=== PATIENT | female | born 1980 | race Caucasian/White ===

== ENCOUNTER 2020-01-13 15:28 | Emergency (ER) | payer BC, OTHER ==
[2020-01-13] MEDS ORDERED: Acetaminophen 500 MG TAB ONE (16:04)
[2020-01-13] MEDS ORDERED: Ketorolac Tromethamine 30 MG/ML VIAL ONE (16:04)
--- NOTE | 2020-01-13 16:33 | RAD ---
XR Chest 1 View Portable HISTORY: Shortness of breath, chest pain, tested positive for COVID 19 COMPARISON: 03/03/2017, 10/14/2019 FINDINGS: The heart size is normal. The lungs are well expanded without focal areas of consolidation, pneumothorax or pleural effusions. IMPRESSION: No radiographic evidence of acute cardiopulmonary process.
[2020-01-13 16:41] LABS: #Lymphocytes 0.7 thou/uL (1.20-3.40); #Monocytes 0.3 thou/uL (0.11-0.59); %Basophils 1.6 % (0.0-1.0); %Eosinophils 1.1 % (0.0-10.0); %Lymphocytes 36.7 % (21.0-51.0); %Monocytes 13.8 % (0.0-10.0); %Neutrophils 46.9 % (42.0-75.0); Hemoglobin 14.3 g/dL (12.0-16.0); Mean Corpuscular HGB CONC 34.7 g/dL (32.0-36.0); Mean Corpuscular Hemoglobin 33.4 pg (27.0-31.0); Mean Corpuscular Volume 96.2 fL (78.0-98.0); Mean Platelet Volume 8.4 fL (7.4-10.4); Platelet Count 160 thou/uL (130-400); RBC Distribution Width 11.4 % (11.5-14.5); Red Blood Cell (RBC) Count 4.28 mill/uL (4.20-5.40)
[2020-01-13 16:50] LABS: BHCG - Serum Negative (NEGATIVE); Pregs Control Background? CLEAR/WHITE (CLR/WHITE); Pregs Control Bar Appear? YES (CONTROL BAR)
[2020-01-13 17:00] LABS: ALT (SGPT) 51 U/L (8-55); AST (SGOT) 41 U/L (5-34); Albumin 3.7 g/dL (3.5-5.0); Alkaline Phosphatase 64 U/L (40-110); Anion Gap 12 mmol/L (10-20); BUN (Urea Nitrogen) 10 mg/dL (7.0-18.7); Bilirubin, Total 0.2 mg/dL (0.2-1.2); Calc. Creatinine Clearance 0 mL/min (70-130); Calcium 8.2 mg/dL (7.8-10.44); Carbon Dioxide 20 mmol/L (22-29); Chloride 109 mmol/L (98-107); Estimated GFR-MDRD 86; Globulin 2.6 g/dL (2.4-3.5); Glucose 81 mg/dL (70-105); Potassium 3.8 mmol/L (3.5-5.1); Protein, Total 6.3 g/dL (6.0-8.3); Sodium 137 mmol/L (136-145)
[2020-01-13 18:39] LABS: Squamous Epithelial 0-3 HPF (0-3); WBC/HPF 0-3 HPF (0-3)
[2020-01-13 18:48] LABS: Bacteria/HPF 1+ HPF (None Seen); Bilirubin Negative (Negative); Blood, Urine Negative (Negative); Clarity Clear (Clear); Glucose, Urine (Dipstick) Normal (Negative); Leukocyte Negative Leu/uL (Negative); Nitrite Negative (Negative); Protein, Urine (Dipstick) Negative (Neg-Trace); Urobilinogen Normal mg/dL (Less than 2)
--- NOTE | 2020-01-16 17:05 | EKG ---
Test Reason : Blood Pressure : / mmHG Vent. Rate : 069 BPM Atrial Rate : 069 BPM P-R Int : 140 ms QRS Dur : 094 ms QT Int : 396 ms P-R-T Axes : 051 070 058 degrees QTc Int : 424 ms Normal sinus rhythm Normal ECG Confirmed by ENA GARCÍA ([id number]), editor dictionary KULDEEP ESTES ([id number]) on 01/16/2020 5:05:43 PM Referred By: Confirmed By:ENA Esquivel
== END 2020-01-13 18:54 | disposition home or self-care (01) ==
LOC: ERS 15:28
DX: U07.1 COVID-19 (principal); F41.9 Anxiety disorder, unspecified; Z79.899 Other long term (current) drug therapy
CPT/HCPCS: 71045; 80053; 81003; 84484; 84703; 85025; 93005; 96360; 96372; J1885

== ENCOUNTER 2020-10-12 23:56 | Emergency (ER) | payer BC | END 2020-10-13 02:31 | disposition home or self-care (01) | LOC: ERS 23:56 | DX: M79.672 Pain in left foot (principal) ==

== ENCOUNTER 2023-02-19 13:02 | Outpatient (CLI) | payer BC | END 2023-02-19 13:03 | disposition home or self-care (01) | LOC: DTY/OP 13:02 | PROVIDERS: ATTEND Surgery | DX: E66.01 Morbid (severe) obesity due to excess calories (principal) | CPT/HCPCS: 97802 ==

== ENCOUNTER 2023-07-02 11:54 | Outpatient (CLI) | payer BC ==
[2023-07-02 16:33] LABS: #Eosinphils 0.1 10x3/uL (0.0-0.5); #Monocytes 0.5 10x3/uL (0.0-1.1); #Neutrophils 3.9 10x3/uL (1.5-8.4); %Basophils 0.7 % (0.0-2.0); %Eosinophils 2.3 % (0.0-6.0); %Lymphocytes 24.4 % (18.0-47.0); %Monocytes 8.1 % (0.0-10.0); %Neutrophils 63.7 % (40.0-75.0); Hematocrit 42.2 % (34.9-44.5); Hemoglobin 14.8 g/dL (12.0-15.5); Mean Corpuscular HGB CONC 35.1 g/dL (32.0-36.0); Mean Corpuscular Hemoglobin 33.1 pg (27.0-33.0); Mean Corpuscular Volume 94.4 fl (81.6-98.3); Mean Platelet Volume 10.8 fl (7.4-10.4); Platelet Count 268 10x3/uL (150-450); Red Blood Cell (RBC) Count 4.47 10x6/uL (3.90-5.03); White Blood Cell (WBC) Count 6.1 10x3/uL (3.5-10.5)
[2023-07-02 16:59] LABS: ALT (SGPT) 92 U/L (8-55); AST (SGOT) 50 U/L (5-34); Albumin 4.2 g/dL (3.5-5.0); Alkaline Phosphatase 78 U/L (40-110); Anion Gap 15 mmol/L (10-20); BUN (Urea Nitrogen) 13 mg/dL (7.0-18.7); Bilirubin, Total 0.5 mg/dL (0.2-1.2); Calc. Creatinine Clearance 0 mL/min (70-130); Calcium 8.8 mg/dL (7.8-10.44); Carbon Dioxide 22 mmol/L (22-29); Chloride 105 mmol/L (98-107); Estimated GFR 85; Globulin 2.5 g/dL (2.4-3.5); Glucose 119 mg/dL (70-105); Protein, Total 6.7 g/dL (6.0-8.3); Sodium 138 mmol/L (136-145)
[2023-07-02 20:24] LABS: Hemoglobin A1c 5.4 % (4.0-6.0)
== END 2023-07-02 11:55 | disposition home or self-care (01) ==
LOC: LABBT 11:54
PROVIDERS: ATTEND Surgery
DX: Z01.818 Encounter for other preprocedural examination (principal); E66.01 Morbid (severe) obesity due to excess calories
CPT/HCPCS: 71046; 80053; 83036; 85025; 93005; 93010

== ENCOUNTER 2023-07-02 12:00 | Inpatient (IN) | payer BC ==
[2023-07-17] MEDS ORDERED: PROPOFOL 20 ML ONE (06:24)
[2023-07-17] MEDS ORDERED: Heparin 5,000 UNITS/ML VIAL ONE (06:24)
[2023-07-17] MEDS ORDERED: Rocuronium Bromide 10 MG/ML (10ML VIAL) ONE (06:25)
[2023-07-17] MEDS ORDERED: fentaNYL 50 mcg/mL 1 mL Vial ONE (06:25)
[2023-07-17] MEDS ORDERED: Sodium Chloride 0.9% 100 ML ONE (06:25)
[2023-07-17] MEDS ORDERED: CEFAZOLIN 2 GM VIAL ONE (06:25)
[2023-07-17] MEDS ORDERED: Ondansetron PF 4 MG/2 ML Vial ONE (06:26)
[2023-07-17] MEDS ORDERED: Dexamethasone 4 mg/ml Vial ONE (06:26)
[2023-07-17] MEDS ORDERED: Ketorolac Tromethamine 30 MG/ML VIAL ONE (06:26)
[2023-07-17] MEDS ORDERED: Bupivacaine 0.25% HCL 30 ML VIAL ONE (06:27)
[2023-07-17] MEDS ORDERED: EPINEPHrine 1 MG/ML VIAL ONE (06:27)
[2023-07-17] MEDS ORDERED: Midazolam HCl 2 mg/2 ml Vial ONE (07:08)
[2023-07-17] MEDS ORDERED: Scopolamine 1 mg/72 hour Patch ONE (07:10)
[2023-07-17] MEDS ORDERED: NEOSTIGMINE 3 MG/3 ML SYR 3 MG/3 ML SYRINGE ONE ×2 (07:58→09:43)
[2023-07-17] MEDS ORDERED: Glycopyrrolate 0.2 MG/ML 5 ML SYRINGE ONE ×2 (07:58→09:43)
[2023-07-17] MEDS ORDERED: Dexamethasone 20 MG/5 ML VIAL ONE (07:58)
[2023-07-17] MEDS ORDERED: HYDROmorphone 2 MG/ML VIAL ONE (09:14)
[2023-07-17] MEDS ORDERED: Ipratropium/Albuterol 3 ML NEB NEB PRN (09:57)
[2023-07-17] MEDS ORDERED: Dextrose 50% Abboject 50 ML SYRINGE SLOW IVP PRN (09:57)
[2023-07-17] MEDS ORDERED: Glucagon 1 MG/ML KIT IM PRN (09:57)
[2023-07-17] MEDS ORDERED: diphenhydrAMINE 50 MG/ML VIAL IVP PRN (09:57)
[2023-07-17] MEDS ORDERED: hydrALAZINE 20 MG/ML VIAL SLOW IVP PRN (09:57)
[2023-07-17] MEDS ORDERED: Promethazine HCl 25 MG/ML VIAL IM PRN ×2 (09:57→11:30)
[2023-07-17] MEDS ORDERED: Dextrose 5% in Water 1,000 ML IV PRN (09:57)
[2023-07-17] MEDS ORDERED: Hydrocodone-Acetamin 15 ML UDCUP PO PRN ×2 (09:57→11:22)
[2023-07-17] MEDS ORDERED: Ondansetron PF 4 MG/2 ML Vial IVP PRN ×2 (09:57→11:30)
[2023-07-17] MEDS ORDERED: fentaNYL PF 100 MCG/2 ML SYRINGE ONE ×2 (10:34→11:14)
[2023-07-17] MEDS ORDERED: diphenhydrAMINE 50 MG/ML VIAL IM/IV PRN (11:30)
[2023-07-17] MEDS ORDERED: Fentanyl CADD 100 ML IVPB SCH (11:30)
[2023-07-17] MEDS ORDERED: diphenhydrAMINE 25 MG CAP PO PRN (11:30)
[2023-07-17] MEDS ORDERED: Naloxone HCl 0.4 mg/ml Vial IV PRN (11:30)
[2023-07-17] MEDS ORDERED: Zolpidem Tartrate 5 MG TAB PO PRN (11:30)
[2023-07-17] MEDS ORDERED: D5 1/2 NS w/20 mEq KCL 1,000 ML ONE (12:39)
[2023-07-17] MEDS: D5 1/2 NS w/20 mEq KCL 1,000 ML IV SCH ×2 (13:50→21:06)
[2023-07-17] MEDS: Ketorolac Tromethamine 30 MG/ML VIAL IVP SCH ×3 (13:50→23:18)
[2023-07-17] MEDS: CEFAZOLIN 2 GM in Sodium Chloride 0.9% 100 ML IVPB SCH ×2 (15:17→21:06)
[2023-07-17 16:09] VITALS: BMI 40.1
[2023-07-18] MEDS: D5 1/2 NS w/20 mEq KCL 1,000 ML IV SCH (01:19)
[2023-07-18] MEDS: Ketorolac Tromethamine 30 MG/ML VIAL IVP SCH (05:28)
[2023-07-18 06:21] LABS: #Monocytes 0.6 thou/uL (0.11-0.59); #Neutrophils 4.1 thou/uL (1.40-6.50); %Basophils 0.2 % (0.0-1.0); %Eosinophils 0.3 % (0.0-10.0); %Lymphocytes 18.9 % (21.0-51.0); %Monocytes 9.7 % (0.0-10.0); %Neutrophils 70.6 % (42.0-75.0); Hematocrit 37.4 % (36.0-47.0); Hemoglobin 12.7 g/dL (12.0-16.0); Mean Corpuscular Hemoglobin 33.1 pg (27.0-31.0); Mean Corpuscular Volume 97.4 fl (78.0-98.0); Mean Platelet Volume 10.3 fL (7.4-10.4); Platelet Count 166 10x3/uL (130-400); Red Blood Cell (RBC) Count 3.84 mill/uL (4.20-5.40); White Blood Cell (WBC) Count 5.8 10x3/uL (4.8-10.8)
[2023-07-18 06:46] LABS: Anion Gap 11 mmol/L (10-20); BUN (Urea Nitrogen) 14 mg/dL (7.0-18.7); Calc. Creatinine Clearance 171 mL/min (70-130); Calcium 8.1 mg/dL (7.8-10.44); Carbon Dioxide 24 mmol/L (22-29); Chloride 103 mmol/L (98-107); Estimated GFR 97; Glucose 106 mg/dL (70-105); Potassium 4.5 mmol/L (3.5-5.1); Sodium 133 mmol/L (136-145)
[2023-07-18 07:53] VITALS: BP 115/74; TEMP 98.2
[2023-07-18] MEDS ORDERED: Morphine 2 MG/ML VIAL SLOW IVP PRN (08:26)
[2023-07-18] MEDS ORDERED: Pantoprazole 40 MG VIAL IVP SCH (09:00)
[2023-07-18] MEDS ORDERED: Enoxaparin 40 MG (0.4 mL) SYRINGE SC SCH (09:00)
== END 2023-07-18 10:07 | disposition home or self-care (01) | DRG 327 ==
LOC: SURG A 07-17 05:58
PROVIDERS: ADMIT Surgery; ATTEND Surgery
PROC: 0D164ZA Bypass Stomach to Jejunum, Percutaneous Endoscopic Approach (ICD-10-PCS; principal; 2023-07-17)
PROC: 0BQT4ZZ Repair Diaphragm, Percutaneous Endoscopic Approach (ICD-10-PCS; 2023-07-17)
PROC: 8E0W4CZ Robotic Assisted Procedure of Trunk Region, Percutaneous Endoscopic Approach (ICD-10-PCS; 2023-07-17)
DX: K44.9 Diaphragmatic hernia without obstruction or gangrene (principal); Z68.41 Body mass index [BMI] 40.0-44.9, adult; E66.01 Morbid (severe) obesity due to excess calories; K21.9 Gastro-esophageal reflux disease without esophagitis; Z90.49 Acquired absence of other specified parts of digestive tract; Z98.890 Other specified postprocedural states
CPT/HCPCS: 36415; 80048; 85025; 94760; C9113; J0171; J1100; J1170; J1644; J1650; J1885; J2250; J2272; J2405; J2704; J3010; J3480; J3490; S0020

== ENCOUNTER 2023-07-19 10:09 | Emergency (ER) | payer BC ==
[2023-07-19] MEDS ORDERED: GASTROGRAFIN 30 ML BOT ONE (10:30)
[2023-07-19] MEDS ORDERED: Iopamidol 370 76% 100 ML VIAL ONE (10:30)
[2023-07-19 10:35] LABS: #Eosinphils 0.1 thou/uL (0.0-0.7); #Monocytes 0.6 thou/uL (0.11-0.59); #Neutrophils 4.6 thou/uL (1.40-6.50); %Basophils 0.2 % (0.0-1.0); %Eosinophils 1.6 % (0.0-10.0); %Lymphocytes 15.6 % (21.0-51.0); %Monocytes 9.4 % (0.0-10.0); %Neutrophils 72.7 % (42.0-75.0); Hematocrit 36.5 % (36.0-47.0); Hemoglobin 12.6 g/dL (12.0-16.0); Mean Corpuscular HGB CONC 34.5 g/dL (32.0-36.0); Mean Corpuscular Hemoglobin 32.8 pg (27.0-31.0); Mean Corpuscular Volume 95.1 fl (78.0-98.0); Mean Platelet Volume 10.5 fL (7.4-10.4); Platelet Count 154 10x3/uL (130-400); Red Blood Cell (RBC) Count 3.84 mill/uL (4.20-5.40); White Blood Cell (WBC) Count 6.3 10x3/uL (4.8-10.8)
[2023-07-19] MEDS ORDERED: Morphine 4 MG/ML VIAL ONE (10:42)
[2023-07-19] MEDS ORDERED: Ondansetron PF 4 MG/2 ML Vial ONE (10:43)
[2023-07-19 10:50] LABS: Bilirubin Negative (Negative); Blood, Urine Negative (Negative); CAUTI Indications for Culture Pelvic or flank pain; Clarity Clear (Clear); Glucose, Urine (Dipstick) Normal (Negative); Ketone, Urine Negative (Negative); Leukocyte Negative Leu/uL (Negative); Nitrite Negative (Negative); Protein, Urine (Dipstick) Negative (Neg-Trace); RBC/HPF 0-3 HPF (0-3); Specific Gravity, Urine 1.018 (1.002-1.036); Squamous Epithelial 0-3 HPF (0-3); Urobilinogen Normal mg/dL (Less than 2); WBC/HPF 0-3 HPF (0-3)
[2023-07-19 10:52] LABS: Bacteria/HPF 1+ HPF (None Seen); Pregnancy Test - Urine (BHCG) Negative (Negative); Specific Gravity 1.018 (1.002-1.036)
[2023-07-19 10:53] LABS: Pregu Control Background? CLEAR/WHITE (CLR/WHITE); Pregu Control Bar Appear? YES (CONTROL BAR); Urine Culture Reflex No No
[2023-07-19 11:05] LABS: ALT (SGPT) 455 U/L (8-55); AST (SGOT) 320 U/L (5-34); Albumin 3.9 g/dL (3.5-5.0); Alkaline Phosphatase 55 U/L (40-110); Anion Gap 10 mmol/L (10-20); BUN (Urea Nitrogen) 15 mg/dL (7.0-18.7); Bilirubin, Total 0.8 mg/dL (0.2-1.2); Calc. Creatinine Clearance 0 mL/min (70-130); Calcium 8.3 mg/dL (7.8-10.44); Carbon Dioxide 23 mmol/L (22-29); Chloride 105 mmol/L (98-107); Estimated GFR 96; Globulin 2.5 g/dL (2.4-3.5); Glucose 103 mg/dL (70-105); Potassium 3.9 mmol/L (3.5-5.1); Protein, Total 6.4 g/dL (6.0-8.3); Sodium 134 mmol/L (136-145)
[2023-07-19 11:21] LABS: SARS-CoV-2 NAA Rapid Test Not Detected (NotDetected)
== END 2023-07-19 12:17 | disposition home or self-care (01) ==
LOC: ERS 10:09
DX: S30.1XXA Contusion of abdominal wall, initial encounter (principal); R50.82 Postprocedural fever; X50.9XXA Other and unspecified overexertion or strenuous movements or postures, initial encounter
CPT/HCPCS: 71045; 74177; 80053; 81001; 81025; 83605; 85025; 87040; 93005; 96374; 96375; J2270; J2405

== ENCOUNTER 2023-08-09 21:20 | Emergency (ER) | payer BC ==
[2023-08-09] MEDS ORDERED: Ondansetron ODT 4 MG TAB ONE (21:51)
[2023-08-09] MEDS ORDERED: Lidocaine 2% Viscous Solution 10 ML, Aluminum & Magnesium Hydroxide 30 ML SSW SCH (22:00)
[2023-08-09 22:06] LABS: Bilirubin Negative (Negative); Blood, Urine Negative (Negative); CAUTI Indications for Culture Pelvic or flank pain; Clarity Turbid (Clear); Glucose, Urine (Dipstick) Normal (Negative); Ketone, Urine Trace mg/dL (Negative); Leukocyte Negative Leu/uL (Negative); Nitrite Negative (Negative); Protein, Urine (Dipstick) 30 mg/dL (Neg-Trace); RBC/HPF 0-3 HPF (0-3); Specific Gravity, Urine 1.039 (1.002-1.036)
[2023-08-09 22:07] LABS: Bacteria/HPF 1+ HPF (None Seen)
[2023-08-09 22:08] LABS: Pregnancy Test - Urine (BHCG) Negative (Negative); Pregu Control Background? CLEAR/WHITE (CLR/WHITE); Pregu Control Bar Appear? YES (CONTROL BAR); Specific Gravity 1.039 (1.002-1.036); Urine Culture Reflex No No
== END 2023-08-09 23:08 | disposition left against medical advice (07) ==
LOC: ERS 21:20
DX: R10.13 Epigastric pain (principal); Z53.20 Procedure and treatment not carried out because of patient's decision for unspecified reasons
CPT/HCPCS: 81001; 81025; 99284; Q0162

== ENCOUNTER 2023-10-17 09:47 | Day surgery (SDC) | payer BC ==
[~2023-10-17 09:47] MED LIST: Ondansetron PF 4 MG/2 ML Vial IVP PRN
[2023-10-17] MEDS: Sodium Chloride 0.9% 1,000 ML IV SCH (10:10)
[2023-10-17] MEDS: Thiamine HCl 100 MG, Multivitamins, Adult 10 ML in Sodium Chloride 0.9% 1,000 ML IVPB SCH (10:59)
[2023-10-17 16:04] VITALS: BP 112/69; TEMP 98
== END 2023-10-17 13:42 | disposition home or self-care (01) ==
LOC: ONC/OP 09:47
PROVIDERS: ATTEND Surgery
DX: E86.0 Dehydration (principal)
CPT/HCPCS: 96360; 96361; J3411; J7050